=== PATIENT | female | born 1935 | race Hispanic/Latino ===

== ENCOUNTER → 2022-08-20 | Outpatient (CLI) | payer OTHER, MEDICARE ==
[2022-08-20 14:04] LABS: BASOPHILS % (AUTO) 0.8 % (0.0-5.0); EOSINOPHILS % (AUTO) 3.1 % (0.0-8.0); HEMATOCRIT 36.2 % (36-48); LYMPHOCYTES % (AUTO) 16.7 % (21.0-51.0); MEAN CORPUSCULAR HGB CONC 31.5 g/dL (32.0-36.0); MEAN CORPUSCULAR VOLUME 92.1 fL (79-99); MONOCYTES % (AUTO) 6.8 % (3.0-13.0); NEUTROPHILS % (AUTO) 72.2 % (40.0-77.0); PLATELET COUNT (AUTO) 390 K/uL (130-400); RED BLOOD CELL COUNT(AUTO) 3.93 MIL/uL (4.00-5.50); RED CELL DISTRIBUTION WIDTH 13.3 % (11.0-15.5); WHITE BLOOD COUNT (AUTO) 7.8 K/uL (4.8-10.8)
[2022-08-20 14:13] LABS: POTASSIUM 4.1 mmol/L (3.5-5.1)
== END | disposition home or self-care (01) ==
LOC: RAH 13:29
PROVIDERS: ATTEND Urology
DX: N39.0 Urinary tract infection, site not specified (principal)
CPT/HCPCS: 36415; 80048; 85025

== ENCOUNTER → 2022-08-25 | Outpatient (CLI) | payer OTHER, MEDICARE ==
[~2022-08-25] MED LIST: IOHEXOL 350 MG/ML 100ML INFUS..BTL IV ONE
== END | disposition home or self-care (01) ==
LOC: OIH 09:05
PROVIDERS: ATTEND Urology
DX: N39.0 Urinary tract infection, site not specified (principal); M48.54XA Collapsed vertebra, not elsewhere classified, thoracic region, initial encounter for fracture; M48.04 Spinal stenosis, thoracic region; Z98.890 Other specified postprocedural states
CPT/HCPCS: 74178; Q9967

== ENCOUNTER 2024-05-11 09:38 | Emergency (ER) | payer OTHER, MEDICARE ==
[~2024-05-11] VITALS: Ht 157.5 cm; Wt 58.1 kg
[~2024-05-11 09:38] MED LIST changes: +FLUT16H EN; +GLIP5TAB15 PO; -IOHEXOL 350 MG/ML 100ML INFUS..BTL IV ONE; +LATA2.5D14 OU; +LISI20TA24 PO; +METF-446 PO; +METO50 PO; +PRIM50TA23 PO; +SIMV-43 PO; +TAMS-1 PO
--- NOTE | 2024-05-11 10:36 | ERN ---
ED Note History of Present Illness Stated Complaint: FALL Chief Complaint: Mechanical Fall Time Seen by MD: 10:03 Dictation: PATIENT IS A 88-YEAR-OLD FEMALE HERE WITH HER DAUGHTER WITH COMPLAINTS OF A UNWITNESSED FALL LAST NIGHT AND DAUGHTER FOUND HER TODAY. SHE HAS NOT ANTERIOR CHEST WALL ECCHYMOSIS AND LEFT HAND PAIN. SHE IS NEUROLOGICALLY INTACT OTHERWISE NIH IS 0 PATIENT'S DAUGHTER STATES SHE LIVES ALONE IN A HOUSE IN FRONT OF HER. NOTHING HAS BEEN GIVEN PRIOR TO ARRIVAL FOR PAIN. DAUGHTER STATES SHE HAD A PRIOR FRACTURE TO THE LEFT HAND Allergies: Coded Allergies: No Allergy Information Available (Verified Allergy, Unknown, 01/21/24) Home Meds Reported Medications Fluticasone Propionate (Flonase Nasal [place]) 50 Mcg/Actuation [place], 2 SPRY EN BID PRN for NASAL CONGESTION 01/21/24 Tamsulosin HCl (Flomax) 0.4 Mg Cap.er.24h, 0.4 MG PO HS 01/21/24 Latanoprost (Latanoprost) 0.005 % Drops, 1 DROP OU HS 01/21/24 Metoprolol Tartrate (Lopressor 50Mg Tab) 50 Mg Tab, 1 TAB PO BID 01/21/24 Metformin HCl (Metformin HCl) 1,000 Mg Tablet, 1 TAB PO BID 01/21/24 Simvastatin (Simvastatin) 20 Mg Tablet, 1 TAB PO DAILY 01/21/24 Glipizide (Glipizide) 5 Mg Tablet, 1 TAB PO DAILY 01/21/24 Lisinopril (Lisinopril) 20 Mg Tablet, 1 TAB PO DAILY 01/21/24 Primidone (Mysoline) 50 Mg Tablet, 50 MG PO HS 01/21/24 Past Medical History Past Medical History: High Cholesterol, Heart Disease, Hypertension Surgical History: Hysterectomy, Tonsillectomy, Other Surgical History Other: NECK, BACK, AND KNEE SX. History: Not Applicable RN Note Reviewed/Agreed w/PFSH: Yes Review of System Dictation CONSTITUTIONAL: NEGATIVE EXCEPT FOR HPI HEAD/FACE: NEGATIVE EXCEPT FOR HPI EENT: NEGATIVE EXCEPT FOR HPI RESPIRATORY: NEGATIVE EXCEPT FOR HPI GASTROINTESTINAL/ABDOMINAL: NEGATIVE EXCEPT FOR HPI GENITOURINARY: NEGATIVE EXCEPT FOR HPI MUSCULOSKELETAL: NEGATIVE EXCEPT FOR HPI LEFT HAND PAIN INTEGUMENTARY: NEGATIVE EXCEPT FOR HPI ECCHYMOSIS TWO AND ANTERIOR CHEST MIDLINE NEUROLOGICAL/PSYCH: NEGATIVE EXCEPT FOR HPI HEMATOLOGIC/LYMPHATIC: NEGATIVE EXCEPT FOR HPI ALL SYSTEMS NEGATIVE, EXCEPT NOTED ABOVE. 13 POINT REVIEW OF SYSTEMS ASSESSED AND ALL NEGATIVE EXCEPT FOR ABOVE. Initial Vital Sign VS Vital Signs Date Time Temp Pulse Resp B/P (MAP) Pulse Ox O2 Delivery O2 Flow Rate FiO2 05/11/24 09:41 97.9 95 16 160/83 100 Room Air 05/11/24 10:21 0 21 Physical Exam Dictation VITAL SIGNS REVIEWED GENERAL APPEARANCE: ALERT, ORIENTED X 3, MILD ACUTE DISTRESS, WELL DEVELOPED, NOURISHED. HEAD AND FACE: NON-TRAUMATIC. EYES: PERRL, PINK CONJUNCTIVAS, EYELID NO TRAUMA, ANTERIOR CHAMBER WITH ARCUS SENILIS. EARS: PINNAS INTACT AND NO SIGNS OF TRAUMA OR ERYTHEMA EAR CANALS CLEAR AND NO DISCHARGE TM NO ERYTHEMA NOSE: NO DISCHARGE, NO BLEEDING. OROPHARYNX: MOUTH NORMAL, TONGUE PINK, PHARYNX CLEAR,NO ERYTHEMA, TONSILS NO EXUDATES, NO ABSCESSES NOTED, MUCOUS MEMBRANE MOIST NECK: SUPPLE, NON-TENDER, NO THYROMEGALY, NO MASSES, NO JVD, NO BRUITS BREAST:DEFERRED CHEST:NO TENDERNESS, NO CREPITUS, NO PARADOXICAL MOVEMENT, NO RETRACTIONS LUNGS:CLEAR, WELL-VENTILATED, SYMMETRIC, NO RALES, NO WHEEZING, NO RHONCHI, NO STRIDOR, GOOD BREATH SOUNDS BILATERALLY HEART: REGULAR RATE, REGULAR RHYTHM, NO MURMUR, NO GALLOPS VASCULAR: NO PERIPHERAL EDEMA, ABDOMEN: SOFT, POSITIVE BOWEL SOUNDS, NONDISTENDED, NO GUARDING, NONTENDER, NO REBOUND, NO MASSES NO HEPATOMEGALY, NO SPLENOMEGALY, NO DURHAM'S SIGN, NO HERNIAS. RECTAL: DEFERRED GENITAL: DEFERRED NEUROLOGICAL: NORMAL SPEECH, MOTOR FUNCTION INTACT, SENSORY FUNCTION INTACT MUSCULOSKELE MILD LEFT HAND TENDERNESS HOWEVER FULL RANGE OF, FULL RANGE OF MOTION SKIN: COLOR PINK, DRY, NO TURGOR, NO RASH, NO LACERATIONS, NO ABRASIONS, NO CONTUSIONS. LYMPHATIC: DEFERRED Results (Laboratory/Radiology) Laboratory/Radiology REASON: FALL TECHNIQUE: 3 views were obtained. FINDINGS: There is no evidence of fracture or dislocation. There is no joint effusion. The soft tissues appear unremarkable. There is no evidence of a radiopaque foreign body. There is osteophytosis at the base of the thumb. There is fixation hardware in the distal radius from remote previous fracture fixation. IMPRESSION: No acute findings. CHEST X-RAY NEGATIVE NO FRACTURE Labs Reviewed?: Yes ED Course ED Course Orders Procedure Category Date Status Time Hand 2+Vws Lt Limited RAD 05/11/24 Resulted 09:45 Acetaminophen 500mg PHA 05/11/24 Complete Tab (Tylenol 500mg T 11:00 Chest 1vw RAD 05/11/24 Taken 10:34 Current Medications Medications (Trade) Dose Ordered Sig/[place] Route PRN Reason Start Time Stop Time Status Last Admin Dose Admin Acetaminophen (TYLenol 500MG TAB) 1,000 mg ONCE ONCE PO 05/11/24 11:00 05/11/24 11:01 DC 05/11/24 10:51 Vital Signs Date Time Temp Pulse Resp B/P (MAP) Pulse Ox O2 Delivery O2 Flow Rate FiO2 05/11/24 10:21 98.2 98 18 143/63 100 Room Air* 0 21 05/11/24 09:41 97.9 95 16 160/83 100 Room Air 1135, PATIENT WE WILL BE DISCHARGED HOME WITH HER DAUGHTER, NO ACUTE FINDINGS ON X-RAYS. PATIENT TOLD TO TAKE TYLENOL ONLY FOR PAIN AND SEE HER PRIMARY CARE DOCTOR Medical Decision Making MDM MEDICAL DISCHARGE MAKING BASED ON X-RAY OF LEFT HAND AND CHEST. X-RAYS READ NEGATIVE PATIENT DISCHARGED HOME WITH TYLENOL ONLY FOR PAIN AND FOLLOW UP WITH HER DOCTOR DX & DISP Disposition: Discharge Departure Impression: Primary Impression: Contusion of left hand, initial encounter Additional Impressions: Chest wall contusion, Fall Condition: Stable Additional Instructions: FOLLOW-UP WITH PRIMARY CARE PROVIDER IN 1 TO 2 DAYS. TAKE MEDICATIONS DIRECTED HERE IN THE EMERGENCY ROOM. OKAY TO CONTINUE HOME MEDICATIONS UNLESS OTHERWISE DISCUSSED DURING YOUR VISIT IN THE EMERGENCY ROOM TODAY. RETURN TO YOUR NEAREST EMERGENCY ROOM IF SYMPTOMS WORSEN OR IF THERE IS NO IMPROVEMENT. CALL 911 IF YOU NEED IMMEDIATE ASSISTANCE. TAKE TYLENOL OR MOTRIN [id number] NEEDED AND IF NO CONTRAINDICATIONS ARE PRESENT. INCREASE ORAL HYDRATION. A WOUND CULTURE OR URINE CULTURE WAS ORDERED HERE IN THE EMERGENCY ROOM DEPARTMENT PLEASE FOLLOW-UP WITH PRIMARY CARE PROVIDER AND ADVISE THEM TO GET REPEAT PORTS FROM OUR FACILITY. IF YOU HAD ANY GUMARO WRAP/SPLINTS THAT WERE APPLIED HERE, PLEASE DO NOT REMOVE THEM UNTIL YOU SEE YOUR PRIMARY CARE OR SPECIALTY. COOL COMPRESSES TO PAIN TWO TO 3 TIMES A DAY. SEE YOUR PRIMARY CARE DOCTOR Referrals: KAYLIE VARGHESE MD (PCP) Time of Disposition: 11:35 I have reviewed the case, and I agree with, Diagnosis and Plan BRANDON GONSALES NP May 11, 2024 10:36
--- NOTE | 2024-05-11 10:40 | NUR ---
Pt arrived to Ed via POV from home with family/friend; c/c ground level fallin the restroom; onset today aprox 8:30am; Pt denies LOC/N/V/Blood thinners; Pt states she didnt hit her head; Pt states she braced her fall with her arms/hands. GCS 15 RTS 12 A&Ox4 NIH0; Pt shows no sign of distress or discomfort at this time;
[2024-05-11] MEDS: acetaMINOPHEN 500 MG TABLET PO ONE (10:51)
--- NOTE | 2024-05-11 11:27 | HMCIMG ---
HAND 2+VWS LT LIMITED REASON: FALL TECHNIQUE: 3 views were obtained. FINDINGS: There is no evidence of fracture or dislocation. There is no joint effusion. The soft tissues appear unremarkable. There is no evidence of a radiopaque foreign body. There is osteophytosis at the base of the thumb. There is fixation hardware in the distal radius from remote previous fracture fixation. IMPRESSION: No acute findings.
[2024-05-11 11:38] VITALS: BP 141/63; PULSE 87; RESP 18; TEMP 98.7; O2SAT 100
--- NOTE | 2024-05-11 11:39 | HMCIMG ---
CHEST 1VW REASON: ANTERIOR CHEST ECCHYMOSIS SECONDARY TO FALL LAST NIGHT. COMPARISON: None. FINDINGS: Single view of the chest was obtained. Lungs are clear. Heart size is normal. There is no pulmonary vascular congestion. Mediastinum and bony thorax appear unremarkable. IMPRESSION: 1. Normal single view chest x-ray.
== END 2024-05-11 11:45 | disposition home or self-care (01) ==
LOC: EDH 09:38
DX: S60.222A Contusion of left hand, initial encounter (principal); S20.212A Contusion of left front wall of thorax, initial encounter; E78.00 Pure hypercholesterolemia, unspecified; I10 Essential (primary) hypertension; Z79.84 Long term (current) use of oral hypoglycemic drugs; Z79.899 Other long term (current) drug therapy; Z90.710 Acquired absence of both cervix and uterus; W18.39XA Other fall on same level, initial encounter; Y93.89 Activity, other specified; Y92.89 Other specified places as the place of occurrence of the external cause; Y99.8 Other external cause status
CPT/HCPCS: 71045; 73120; 99284